=== PATIENT | male | born 1955 | race Caucasian/White ===

== ENCOUNTER → 2020-01-13 | Outpatient (CLI) | payer BC, MEDICARE ==
[~2020-01-13] MED LIST: AMLO5TAB10 PO; ASPI-886 PO; MELO15TA23 PO; MULT-496 PO; OLME40TA12 PO; vit d PO
== END | disposition home or self-care (01) ==
LOC: LAB 10:40
PROVIDERS: ATTEND Internal Medicine Cardiovascular Disease
DX: Z01.818 Encounter for other preprocedural examination (principal); Z11.59 Encounter for screening for other viral diseases; I25.10 Atherosclerotic heart disease of native coronary artery without angina pectoris
CPT/HCPCS: C9803; U0003

== ENCOUNTER 2020-01-17 07:04 | Outpatient (CLI) | payer BC, MEDICARE ==
[~2020-01-17] VITALS: Ht 177.8 cm; Wt 113.9 kg
[2020-01-17] VITALS (12 sets, daily range): BP systolic 104–128; BP diastolic 57–85
[2020-01-17] MEDS ORDERED: IODIXANOL 320 MG/ML 100 ML VIAL. ONE (07:43)
[2020-01-17] MEDS ORDERED: LIDOCAINE 1% PF 2 ML VIAL. ONE (07:43)
[2020-01-17] MEDS ORDERED: HEPARIN for ARTERIAL LINE 1,500 ML ONE (07:43)
[2020-01-17 07:50] LABS: HEMATOCRIT 42.7 % (39.0-53.0); HEMOGLOBIN 14.6 g/dL (13.0-17.5); RED BLOOD COUNT 4.62 x10^6/uL (4.30-5.70); RED CELL DISTRIBUTION WIDTH 13.1 % (11.5-14.5); WHITE BLOOD COUNT 6.9 x10^3/uL (4.0-11.0)
[2020-01-17] MEDS ORDERED: MELO15TA23 PO (07:56)
[2020-01-17] MEDS ORDERED: MULT-496 PO (07:56)
[2020-01-17] MEDS ORDERED: AMLO5TAB10 PO (07:56)
[2020-01-17] MEDS ORDERED: vit d PO (07:56)
[2020-01-17] MEDS ORDERED: ASPI-612 PO (07:56)
[2020-01-17] MEDS ORDERED: OLME40TA12 PO (07:56)
[2020-01-17 08:00] LABS: PROTHROMBIN TIME PATIENT 12.9 SEC (11.7-14.0)
[2020-01-17 08:06] LABS: CALCIUM 8.5 mg/dL (8.5-10.1); CREATININE 1.2 mg/dL (0.7-1.3); GFR 60.6
[2020-01-17] MEDS ORDERED: VERAPAMIL 5 MG/2 ML VIAL. ONE (08:06)
[2020-01-17] MEDS ORDERED: MIDAZOLAM HCL/PF 2 MG/2 ML VIAL. ONE (08:06)
[2020-01-17] MEDS ORDERED: HEPARIN for IV BOLUS 10,000 UNIT/10 ML VIAL. ONE (08:06)
[2020-01-17] MEDS ORDERED: NITROGLYCERIN 200 MCG/2 ML SYRINGE FOR CATH/VASC LAB. ONE (08:06)
[2020-01-17] MEDS ORDERED: fentaNYL PF VIAL 100 MCG/2 ML VIAL ONE (08:06)
[2020-01-17] MEDS ORDERED: VERAPAMIL 5 MG/2 ML VIAL. IART ONE (08:45)
[2020-01-17] MEDS ORDERED: NITROGLYCERIN 200 MCG/2 ML SYRINGE FOR CATH/VASC LAB. IART ONE (08:45)
[2020-01-17] MEDS ORDERED: MIDAZOLAM HCL/PF 2 MG/2 ML VIAL. IV ONE (08:45)
[2020-01-17] MEDS ORDERED: LIDOCAINE 1% PF 2 ML VIAL. INJ ONE (08:45)
[2020-01-17] MEDS ORDERED: HEPARIN for IV BOLUS 10,000 UNIT/10 ML VIAL. IART ONE (08:45)
[2020-01-17] MEDS ORDERED: IODIXANOL 320 MG/ML 100 ML VIAL. IART ONE (08:45)
[2020-01-17] MEDS ORDERED: fentaNYL PF VIAL 100 MCG/2 ML VIAL IV ONE (08:45)
--- NOTE | 2020-01-17 10:14 | PDOC ---
MODERATE SEDATION ASSESSMENT RISKS/ALTERNATIVES Risks/Alternatives Risks and alternatives of this type of sedation and procedure discussed with: RISK/ALTERNATIVES: Patient H & P ON CHART H & P H & P on chart and reviewed for co-morbid conditions and appropriate labs. H&P ON CHART: Yes STATUS PREG STATUS ASSESSED: N/A MEDS/ALLERGIES REVIEWED Meds/Allergies Reviewed Medications and Allergies including time and route of recently administered narcotics and sedatives. MEDS/ALLERGIES REVIEWED: Yes ASA RATING ASA RATING: II AIRWAY ASSESSMENT Airway Assessment Airway patency, oral function limitations, presence of caps, crowns, dentures, partials, and ability to extend neck assessed. AIRWAY ASSESSMENT: Yes MALLAMPATI SCORE MALLAMPATI SCORE: III (Late entry) PRE-SEDATION ASSESSMENT PRE-SEDATION ASSESSMENT: Yes OSEI CANALES MD Jan 17, 2020 10:14
--- NOTE | 2020-01-17 10:18 | PDOC1 ---
History and Physical Visit Information Date of Admission: 01/17/2020 History of Present Illness History of Present Illness Pleasant 65 y.o male seen approximately 3 months ago with progressive exertional dyspnea. He had an abnormal stress test and due to dyspnea he presented to the lab rn for further evaluation in this setting. Today he has some chest pressure and reports that dyspnea has been worsening. Cardiac Risk Factors Cardiac Risk Factors: Hypertension, Overweight/Obese/Met Synd, Hyperlipidemia, Family History Current Medications Current Medications Current Medications Fentanyl Citrate (Fentanyl 2ml Vial) 100 mcg 1X ONCE IV Last administered on 01/17/20at 08:32; Start 01/17/20 at 08:45; Stop 01/17/20 at 08:46; Status DC Fentanyl Citrate (Fentanyl 2ml Vial) 100 mcg STK-MED ONCE .ROUTE ; Start 01/17/20 at 08:06; Stop 01/17/20 at 08:07; Status DC Heparin Sodium (Porcine) (Heparin Sodium) 2,500 unit 1X ONCE IART Last administered on 01/17/20at 08:45; Start 01/17/20 at 08:45; Stop 01/17/20 at 08:46; Status DC Heparin Sodium (Porcine) (Heparin Sodium) 10,000 unit STK-MED ONCE .ROUTE ; Start 01/17/20 at 08:06; Stop 01/17/20 at 08:07; Status DC Heparin Sodium/ Sodium Chloride 1,500 ml @ As Directed STK-MED ONCE .ROUTE ; Start 01/17/20 at 07:43; Stop 01/17/20 at 07:43; Status DC Heparin Sodium/ Sodium Chloride (HEPARIN for ARTERIAL LINE FLUSH) 1,000 unit 1X ONCE IART Last administered on 01/17/20at 08:45; Start 01/17/20 at 08:45; Stop 01/17/20 at 08:46; Status DC Heparin Sodium/ Sodium Chloride (HEPARIN for ARTERIAL LINE FLUSH) 1,000 unit 1X ONCE IART Last administered on 01/17/20at 08:45; Start 01/17/20 at 08:45; Stop 01/17/20 at 08:46; Status DC Iodixanol (Visipaque 320) 100 ml 1X ONCE IART Last administered on 01/17/20at 08:45; Start 01/17/20 at 08:45; Stop 01/17/20 at 08:46; Status DC Iodixanol (Visipaque 320) 100 ml STK-MED ONCE .ROUTE ; Start 01/17/20 at 07:43; Stop 01/17/20 at 07:43; Status DC Lidocaine HCl (Xylocaine-Mpf 1% 2ml Vial) 2 ml 1X ONCE INJ Last administered on 01/17/20at 08:45; Start 01/17/20 at 08:45; Stop 01/17/20 at 08:46; Status DC Lidocaine HCl (Xylocaine-Mpf 1% 2ml Vial) 2 ml STK-MED ONCE .ROUTE ; Start 01/17/20 at 07:43; Stop 01/17/20 at 07:43; Status DC Midazolam HCl (Versed) 2 mg 1X ONCE IV Last administered on 01/17/20at 08:32; Start 01/17/20 at 08:45; Stop 01/17/20 at 08:46; Status DC Midazolam HCl (Versed) 2 mg STK-MED ONCE .ROUTE ; Start 01/17/20 at 08:06; Stop 01/17/20 at 08:07; Status DC Nitroglycerin (Nitroglycerin) 200 mcg 1X ONCE IART Last administered on 01/17/20at 08:45; Start 01/17/20 at 08:45; Stop 01/17/20 at 08:46; Status DC Nitroglycerin (Nitroglycerin) 200 mcg STK-MED ONCE .ROUTE ; Start 01/17/20 at 08:06; Stop 01/17/20 at 08:07; Status DC Verapamil HCl (Verapamil) 2.5 mg 1X ONCE IART Last administered on 01/17/20at 08:45; Start 01/17/20 at 08:45; Stop 01/17/20 at 08:46; Status DC Verapamil HCl (Verapamil) 5 mg STK-MED ONCE .ROUTE ; Start 01/17/20 at 08:06; Stop 01/17/20 at 08:07; Status DC Allergies Allergies Allergies Coded Allergies Type Severity Reaction Last Updated Verified No Known Drug Allergies 01/17/20 No Social History Comments remote smoker. No alcohol, or illicit drug use. He is Family History Family History: Coronary Artery Disease ROS Review of System Negative for 04/11 systems reviewed unless noted above in HPI Physical Exam General: Alert, Oriented X3 HEENT: Atraumatic Lungs: Clear to auscultation Heart: Regular rate CHEST: Clear to auscultation Abdomen: Normal bowel sounds Extremities: No clubbing Skin: No rashes Neuro: Normal gait Vitals VITALS Vital Signs Date Time Temp Pulse Resp B/P (MAP) Pulse Ox O2 Delivery O2 Flow Rate FiO2 01/17/20 09:50 81 14 94 01/17/20 08:59 Nasal Cannula 2.0 01/17/20 07:56 98.9 123/69 (87) 98.9 Labs Labs Laboratory Tests Test 01/17/20 07:40 White Blood Count 6.9 x10^3/uL (4.0-11.0) Red Blood Count 4.62 x10^6/uL (4.30-5.70) Hemoglobin 14.6 g/dL (13.0-17.5) Hematocrit 42.7 % (39.0-53.0) Mean Corpuscular Volume 92 fL (79-100) Mean Corpuscular Hemoglobin 32 pg (25-35) Mean Corpuscular Hemoglobin Concent 34 g/dL (31-37) Red Cell Distribution Width 13.1 % (11.5-14.5) Platelet Count 178 x10^3/uL (140-400) Prothrombin Time 12.9 SEC (11.7-14.0) Prothromb Time International Ratio 1.0 (0.8-1.1) Sodium Level 141 mmol/L (136-145) Potassium Level 4.0 mmol/L (3.5-5.1) Chloride Level 107 mmol/L (98-107) Carbon Dioxide Level 27 mmol/L (21-32) Anion Gap 7 (6-14) Blood Urea Nitrogen 21 mg/dL (8-26) Creatinine 1.2 mg/dL (0.7-1.3) Estimated GFR (Cockcroft-Gault) 60.6 Glucose Level 106 mg/dL (70-99) Calcium Level 8.5 mg/dL (8.5-10.1) Laboratory Tests Test 01/17/20 07:40 White Blood Count 6.9 x10^3/uL (4.0-11.0) Red Blood Count 4.62 x10^6/uL (4.30-5.70) Hemoglobin 14.6 g/dL (13.0-17.5) Hematocrit 42.7 % (39.0-53.0) Mean Corpuscular Volume 92 fL (79-100) Mean Corpuscular Hemoglobin 32 pg (25-35) Mean Corpuscular Hemoglobin Concent 34 g/dL (31-37) Red Cell Distribution Width 13.1 % (11.5-14.5) Platelet Count 178 x10^3/uL (140-400) Prothrombin Time 12.9 SEC (11.7-14.0) Prothromb Time International Ratio 1.0 (0.8-1.1) Sodium Level 141 mmol/L (136-145) Potassium Level 4.0 mmol/L (3.5-5.1) Chloride Level 107 mmol/L (98-107) Carbon Dioxide Level 27 mmol/L (21-32) Anion Gap 7 (6-14) Blood Urea Nitrogen 21 mg/dL (8-26) Creatinine 1.2 mg/dL (0.7-1.3) Estimated GFR (Cockcroft-Gault) 60.6 Glucose Level 106 mg/dL (70-99) Calcium Level 8.5 mg/dL (8.5-10.1) ECG EKG: NSR VTE Prophylaxis Ordered VTE Prophylaxis Devices: No VTE Pharmacological Prophylaxi: No Assessment/Plan Assessment/Plan 1. Abnormal stress test with exertional dyspnea. Plan for [facility]/Coronary angiography, patient agreeable. R/b/a discussed. Thanks Justicifation of Admission Dx: Justifications for Admission: Justification of Admission Dx: Yes ([facility]) OSEI CANALES MD Jan 17, 2020 10:18
[2020-01-17] MEDS ORDERED: 0.9 % SODIUM CHLORIDE 10 ML DISP.SYRIN. IV PRN (10:30)
[2020-01-17] MEDS ORDERED: NITROGLYCERIN SUBLINGUAL 0.4 MG BOTTLE OF 25. SL PRN (10:30)
--- NOTE | 2020-01-17 11:36 | NUR ---
pt A&O x3. denies pain,nausea or dizziness. VSS. tolerating po well. ambulated w/o problem. removed TR band from rt radial site. no bleeding. cleaned area and applied dry dressing. reapplied armboard to rt hand/wrist area. d/c instructions given and questions answered. out to vehicle per w/c, to drive him home.
--- NOTE | 2020-01-17 14:05 | CARD ---
MR#: [id number] Date of Study: 01/17/2020 Ordering Physician: OSEI CANALES, Referring Physician: OSEI CANALES, Tech: DEJAN DE LEÓN RTR APPROVED REPORT Technologist: DEJAN DE LEÓN RTR Nurse: ISACC HESS RN Procedure(s) performed: MODERATE SEDATION TIME: 26 MINUTES FLUORO TIME: 3.8 MIN DOSE: 77.5 GYCM2 CONTRAST: 85CC VISI LHC, Coronary angiography, Left ventriculogram HISTORY : The patient is a 65 year-old male with a history of . INDICATION The indication(s) include : positive stress test, dyspnea. [facility] Clinical Frailty Scale [facility] Clinical Frailty Scale: Managing Well Heart Failure Heart Failure: Yes If Yes, Newly Diagnosed: No If Yes, HF Type: Diastolic If Yes, NYHA Class: Class II PROCEDURE NARRATIVE INFORMED CONSENT: After explaining the risks and benefits of the procedure and alternatives, informed consent was obtained. The patient was brought electively to the cardiac catheterization lab. A timeout was performed confi rming the patient's name, date of , procedure, and site of procedure. All necessary personnel w ere wearing the appropriate protective equipment and radiation monitor devices. (See nursing notes for medications administered). ACCESS: The right wrist was sterilely prepped and draped in the usual fashion. The right wrist was infiltrat ed with 1 mL of 2% lidocaine for subcutaneous anesthesia. A 6 Spanish Terumo glide sheath was inserte d into the right radial artery without difficulty. CORONARY ANGIOGRAPHY: Right and left coronary angiography was performed using a 6Fr TIG 4.0 catheter. Left ventricular en d diastolic pressure was obtained with a pigtail catheter and pullback was performed after left ventr iculography. All catheter exchanges and advancements were performed over a guidewire. CLOSURE: At case completion the right radial sheath was removed and a Terumo radial band was applied with 13 m l of air. COMPLICATIONS: The patient tolerated the procedure well and there were no immediate complications. FINDINGS: HEMODYNAMICS: LVEDP 18 mm Hg No gradient on LV to aortic pullback. AO: 128/78 LEFT VENTRICULOGRAM: EF 55% Anterobasal: Normal. Anterolateral: Normal Apical: Normal Diaphragmatic: Normal Posterobasal: Normal CORONARY ANGIOGRAPHY: LM is a large caliber vessel with normal angiographic appearance. LAD is a large caliber vessel with normal angiographic appearance. D1/D2 are moderate caliber vessels with normal angiographic appearance. LCx is a moderate caliber non-dominant vessel with normal angiographic appearance. OM1 is a moderate caliber vessel with normal angiographic appearance. RCA is a large caliber dominant vessel with normal angiographic appearance. RPDA and RPL are moderate caliber vessels with normal angiographic appearance. Conclusion 1. Mild acute on chronic diastolic HF 2. Normal LV systolic function. EF 55% 3. Normal angiographic appearance of the coronary arteries Recommendations Consider evaluation of non-cardiac causes of dyspnea. Referral to pulmonary service. Signed by : Osei Canales, Electronically Approved : 01/17/2020 14:04:54
== END 2020-01-17 11:40 | disposition home or self-care (01) ==
LOC: CCL 07:04 → EDUNIT# 08:30 → CCL 11:40
PROVIDERS: ATTEND Internal Medicine Cardiovascular Disease
DX: R06.00 Dyspnea, unspecified (principal); I10 Essential (primary) hypertension; E78.5 Hyperlipidemia, unspecified; Z79.01 Long term (current) use of anticoagulants
CPT/HCPCS: 36415; 80048; 85027; 85610; 93458; 99152; 99153; C1769; C1892; J1644; J2250; J3010; J3490; Q9967